=== PATIENT | male | born 2005 | race African-American/Black ===

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

== ENCOUNTER 2024-04-22 18:45 | Emergency (ER) | payer SELFPAY ==
[~2024-04-22] VITALS: Ht 177.8 cm; Wt 70.0 kg
[2024-04-22 18:51] VITALS: O2SAT 100
[2024-04-22] MEDS ORDERED: ACETAMINOPHEN 325MG TABLET PO ONE (20:45)
[2024-04-22] MEDS ORDERED: IBUPROFEN 600MG TABLET PO ONE (20:45)
[2024-04-22] MEDS ORDERED: IBUP-2029 MT (22:11)
[2024-04-22] MEDS ORDERED: TOPUD MT (22:11)
[2024-04-22] MEDS: IBUPROFEN 600MG TABLET PO NR (22:30)
[2024-04-22] MEDS: ACETAMINOPHEN 325MG TABLET PO NR (22:30)
[2024-04-22 23:09] VITALS: BP 159/91; PULSE 100; RESP 18; TEMP 36.66960; O2SAT 100
== END 2024-04-22 23:10 | disposition home or self-care (01) ==
LOC: ER 18:45
DX: M25.532 Pain in left wrist (principal); M79.642 Pain in left hand; M25.562 Pain in left knee; V47.6XXA Car passenger injured in collision with fixed or stationary object in traffic accident, initial encounter; Y92.410 Unspecified street and highway as the place of occurrence of the external cause; Y92.89 Other specified places as the place of occurrence of the external cause; Y99.8 Other external cause status
CPT/HCPCS: 73110; 73130; 73562; 99284; Z7610; L1830